=== PATIENT | male | born 1935 | race Caucasian/White ===

== ENCOUNTER 2017-01-10 11:00 | Outpatient (CLI) | payer MEDICARE ==
--- NOTE | 2017-01-10 12:29 | RAD ---
TWO VIEWS OF THE CHEST: HISTORY: Dyspnea. COMPARISON: 10/16/2007 FINDINGS: Single view of the chest show normal sized cardiomediastinal silhouette. There is no evidence of con solidation, mass, or pleural effusion. The bones are unremarkable. IMPRESSION: No evidence of acute cardiopulmonary disease. POS: [facility]
== END 2017-01-10 11:01 | disposition home or self-care (01) ==
LOC: RAD 11:00
PROVIDERS: ATTEND Internal Medicine
DX: R06.00 Dyspnea, unspecified (principal)
CPT/HCPCS: 71020

== ENCOUNTER 2018-09-12 12:18 | Outpatient (CLI) | payer MEDICARE ==
[2018-09-12 13:29] LABS: #Eosinphils 0.2 thou/uL (0.0-0.7); #Lymphocytes 0.9 thou/uL (1.20-3.40); #Monocytes 0.3 thou/uL (0.11-0.59); #Neutrophils 3.3 thou/uL (1.40-6.50); %Eosinophils 4.3 % (0.0-10.0); %Monocytes 6.9 % (0.0-10.0); %Neutrophils 70.7 % (42.0-75.0); Hemoglobin 13.8 g/dL (14.0-18.0); Mean Corpuscular HGB CONC 34.1 g/dL (32.0-36.0); Mean Platelet Volume 7.4 fL (7.4-10.4); Platelet Count 93 thou/uL (130-400); Red Blood Cell (RBC) Count 4.76 mill/uL (4.70-6.10); White Blood Cell (WBC) Count 4.7 thou/uL (4.8-10.8)
[2018-09-12 13:35] LABS: Prothrombin Time 13.6 SEC (12.0-14.7)
[2018-09-12 13:45] LABS: Bacteria/HPF None Seen HPF (None Seen); Hyaline Casts/LPF 0-3 HYALINE CAST LPF (0-3 Hyaline); RBC/HPF 0-3 HPF (0-3); Squamous Epithelial 0-3 HPF (0-3)
[2018-09-12 13:57] LABS: Anion Gap 14 mmol/L (10-20); BUN (Urea Nitrogen) 28 mg/dL (8.4-25.7); Calc. Creatinine Clearance 0 mL/min (70-130); Calcium 9.1 mg/dL (7.8-10.44); Carbon Dioxide 23 mmol/L (23-31); Chloride 107 mmol/L (98-107); Estimated GFR-MDRD 47; Glucose 102 mg/dL (83-110); Potassium 4.8 mmol/L (3.5-5.1); Sodium 139 mmol/L (136-145)
== END 2018-09-12 12:19 | disposition home or self-care (01) ==
LOC: LABBT 12:18
PROVIDERS: ATTEND Orthopaedic Surgery
DX: Z01.818 Encounter for other preprocedural examination (principal); M17.12 Unilateral primary osteoarthritis, left knee
CPT/HCPCS: 80048; 81015; 85025; 85610; 87081; 93005; 93010

== ENCOUNTER 2018-09-17 06:19 | Inpatient (IN) | payer MEDICARE ==
[2018-09-17] MEDS ORDERED: Bupivacaine PF 0.5% 30 ML VIAL ONE (06:33)
[2018-09-17] MEDS ORDERED: Tranexamic Acid 1,000 MG/10 ML VIAL ONE ×2 (07:37→12:17)
[2018-09-17] MEDS ORDERED: Sodium Chloride 0.9% 100 ML ONE (07:37)
[2018-09-17] MEDS ORDERED: Vancomycin HCl 1.5 GM in Sodium Chloride 0.9% 250 ML 300 ML IVPB SCH ×2 (07:45→10:30)
[2018-09-17] MEDS ORDERED: Midazolam HCl 2 mg/2 ml Vial ONE ×2 (08:17→13:08)
[2018-09-17] MEDS ORDERED: Fentanyl 100 MCG/2 ML VIAL ONE ×5 (08:17→13:05)
[2018-09-17] MEDS ORDERED: HYDROcodone/Acetaminophen 10/325 mg Tablet PO PRN (08:43)
[2018-09-17] MEDS ORDERED: Ondansetron PF 4 MG/2 ML Vial IVP PRN ×2 (08:43→10:21)
[2018-09-17] MEDS ORDERED: Promethazine HCl 25 MG/ML VIAL IM PRN ×3 (08:43→11:34)
[2018-09-17] MEDS ORDERED: traMADol HCl 50 MG TAB PO PRN ×2 (08:43)
[2018-09-17] MEDS ORDERED: Zolpidem Tartrate 5 MG TAB PO PRN ×2 (08:43→10:21)
[2018-09-17] MEDS ORDERED: diphenhydrAMINE 25 MG CAP PO PRN (10:21)
[2018-09-17] MEDS ORDERED: Acetaminophen 325 MG TAB PO PRN (10:21)
[2018-09-17] MEDS ORDERED: Tranexamic Acid 1,000 MG in Sodium Chloride 0.9% 100 ML IVPB SCH (10:30)
[2018-09-17] MEDS ORDERED: Promethazine HCl 25 MG/ML VIAL SLOW IVP PRN (11:34)
[2018-09-17] MEDS ORDERED: Ondansetron HCl/PF 4 MG/2 ML Vial IVP PRN (11:34)
[2018-09-17] MEDS ORDERED: Morphine 4 MG/ML VIAL ONE (13:08)
[2018-09-17] MEDS ORDERED: Morphine 4 MG/ML VIAL IV SCH (13:30)
[2018-09-17] MEDS ORDERED: Midazolam HCl 2 mg/2 ml Vial SLOW IVP SCH (13:30)
--- NOTE | 2018-09-17 13:36 | OP ---
DATE OF PROCEDURE: 09/17/2018 PREOPERATIVE DIAGNOSIS: Left knee arthritis. POSTOPERATIVE DIAGNOSIS: Left knee arthritis. PROCEDURE PERFORMED: Left total knee replacement using Corso pinless navigation. SATELLITE TV TECHNICIAN INSTALLER: Low Thibodeaux PA-C ESTIMATED BLOOD LOSS: Minimal. COMPLICATIONS: None. ANESTHESIA: The patient did have a general anesthetic as well as a preoperative block. IMPLANTS: To the left knee is a Molly Triathlon total knee system. We used a size 6 cruciate retaining femur. We used a size 6 primary tibial base plate. We used a 6 x 9 mm CS X3 tibial poly and an asymmetric 29 x 9 X3 patella. DISPOSITION: He did go to recovery room in stable condition. INDICATIONS: Mr. Finch is an 83-year-old male, who has tried various nonoperative treatments for his left knee arthritis, and at this time, that has failed and he wished to have his knee replaced. DESCRIPTION OF PROCEDURE: After all appropriate consent forms were explained and signed, the patient was taken back to the operating room and at this time was given general anesthetic. Once the level of anesthesia was appropriate, a well-padded tourniquet was placed on the left leg, and the leg was then prepped and draped in standard surgical fashion. The limb was exsanguinated and tourniquet taken up to 300 mmHg. Midline incision was made with a 10 blade down through the skin and subcutaneous tissue. Bovie electrocautery was used to coagulate any brisk venous bleeding. A new blade was used to make a medial parapatellar arthrotomy. Small subperiosteal release was performed medially and excess fat pad was removed. The knee was flexed up to gain access to the femur. The femur was navigated and distal femoral resection was made. Epicondylar access was used to align our sizing jig and this was pinned in place. We sized our femur to be a size 6. 4:1 cutting block was applied and pinned. Anterior and posterior chamfer cuts were then made. We navigated out our proximal tibia and made our proximal tibial resection. Spreaders were used to remove any posterior osteophytes off the back of the femur as well as remaining meniscal tissue. A long alignment zenobia was then used to achieve correct rotation of our tibial baseplate and a size 6 was chosen. This was pinned in place. We trialed the polyethylene and a 6 x 9 mm CS X3 tibial polyethylene gave us full extension and good stability throughout range of motion. Two towel clips and a saw were used to cut our patella. Three lug nuts were drilled and asymmetric 29 x 9 X3 patella was trialed which sat nicely in the trochlear groove. We then drilled our femur and punched our tibia. All components were removed. The knee was thoroughly irrigated and dried. Cement was mixed into the cement gun on the back table. Components were then placed. The knee was held out in full extension until the cement had dried. All excess bone cement was removed. Multiple #2 Vicryl stitches as well as a Quill were used to close our extensor mechanism. 0 Quill followed by a running Monoderm was then used to close the skin. Surgicel glue was then used on the skin. Once this had dried, soft tissue dressing was applied to the limb, tourniquet was let down, and the toes pinked up nicely. The patient was then awakened and taken to the recovery room in stable condition. All counts were correct at the end of the case. The patient did receive preoperative IV antibiotics. The patient was injected with Exparel for postoperative pain relief. Job ID: [id number]
[2018-09-17] MEDS ORDERED: Morphine 2 MG/ML SYRINGE ONE (13:56)
[2018-09-17] MEDS ORDERED: CEFAZOLIN 2 GM in Premix Bag 1 BAG IVPB SCH (14:00)
[2018-09-17] MEDS ORDERED: Morphine 2 MG/ML SYRINGE SLOW IVP SCH (15:00)
[2018-09-17] MEDS: Fentanyl 100 MCG/2 ML VIAL IV PRN (15:16)
[2018-09-17] MEDS ORDERED: Ropivacaine 0.5% HCl/PF (150 MG/30 ML VIAL) ONE (15:18)
[2018-09-17] MEDS ORDERED: Ropivacaine 0.2% HCl/PF (40 MG/20 ML VIAL) ONE (15:18)
[2018-09-17] MEDS: Sodium Chloride 0.9% 1,000 ML IV SCH ×3 (15:22→21:30)
[2018-09-17] MEDS ORDERED: Ondansetron PF 4 MG/2 ML Vial ONE (16:34)
[2018-09-17] MEDS ORDERED: Phenylephrine HCL 10 MG/ML VIAL ONE (16:34)
[2018-09-17] MEDS ORDERED: Lidocaine 1% PF 5 ML VIAL ONE (16:34)
[2018-09-17] MEDS ORDERED: Rocuronium Bromide 10 MG/ML (10ML VIAL) ONE (16:34)
[2018-09-17] MEDS ORDERED: PROPOFOL 200 MG/20 ML VIAL ONE (16:34)
[2018-09-17] MEDS ORDERED: Glycopyrrolate 0.2 MG/ML 5 ML SYRINGE ONE (16:34)
--- NOTE | 2018-09-17 17:36 | EKG ---
Test Reason : PREOP Blood Pressure : / mmHG Vent. Rate : 071 BPM Atrial Rate : 071 BPM P-R Int : 218 ms QRS Dur : 090 ms QT Int : 410 ms P-R-T Axes : 033 017 048 degrees QTc Int : 445 ms Sinus rhythm with 1st degree A-V block with frequent Premature ventricular complexes Otherwise normal ECG When compared with ECG of 12-SEP-2018 12:46, (Unconfirmed) Premature ventricular complexes are now Present Confirmed by ALEJANDRO FORRESTER, SOlinda ([id number]) on 09/17/2018 5:35:49 PM Referred By: IERO Confirmed By:DR. Drew ALLEN MD
[2018-09-17] MEDS: CEFAZOLIN 2 GM in Premix Bag 1 BAG IVPB SCH (18:59)
[2018-09-17] MEDS: Atorvastatin Calcium 10 MG TAB PO SCH (22:00)
[2018-09-17] MEDS: Senokot S 8.6-50 MG TAB PO SCH (22:00)
[2018-09-17] MEDS: Aspirin 81 mg Enteric Coated Tablet PO SCH (22:00)
[2018-09-17] MEDS: Ferrous Gluconate 324 MG TAB PO SCH (22:00)
[2018-09-17] MEDS: HYDROcodone/Acetaminophen 10/325 mg Tablet PO PRN (22:49)
[2018-09-18] MEDS: CEFAZOLIN 2 GM in Premix Bag 1 BAG IVPB SCH (01:30)
[2018-09-18 04:38] LABS: Hemoglobin 13.1 g/dL (14.0-18.0); Mean Corpuscular HGB CONC 34.7 g/dL (32.0-36.0); Mean Corpuscular Hemoglobin 29.6 pg (27.0-31.0); Mean Corpuscular Volume 85.5 fL (78.0-98.0); Mean Platelet Volume 7.8 fL (7.4-10.4); Platelet Count 81 thou/uL (130-400); RBC Distribution Width 13.9 % (11.5-14.5); Red Blood Cell (RBC) Count 4.43 mill/uL (4.70-6.10); White Blood Cell (WBC) Count 8.8 thou/uL (4.8-10.8)
[2018-09-18] MEDS: HYDROcodone/Acetaminophen 10/325 mg Tablet PO PRN ×3 (06:51→21:21)
[2018-09-18] MEDS: Sodium Chloride 0.9% 1,000 ML IV SCH ×2 (06:53→16:31)
--- NOTE | 2018-09-18 07:48 | PDOC.EVN ---
Event Note - Event Note Event Note: Dictated consultation note pending (09/17/18) Briefly, Mr. Finch is a very pleasant 83 yo M who is a patient of our clinic. He presented for L TKR by Dr. Hickman and we have been consulted for medical management of his comorbidities. He is feeling very well postoperatively and has no complaints at this time. VS reviewed - ALL wnl Exam unremarkable apart from LLE in large CRISTAL bandage and elevated ROS negative A/P: 83 yo M with PMHx HTN, HLD, OA and CKD3 here for L TKR 1. OA s/p TKR: Mgmt per primary team 2. HTN: Continue home coreg (consider BID dosing if BPs elevated) 3. HLD: Continue home atorvastatin 4. Urge incontinence: Continue home detrol DVT ppx: per ortho CODE: FULL This patient was discussed with Dr. Coelho.
[2018-09-18] MEDS ORDERED: Atorvastatin Calcium 20 MG TAB PO SCH (09:00)
[2018-09-18] MEDS ORDERED: Carvedilol 6.25 MG TAB PO SCH ×2 (09:00)
[2018-09-18] MEDS ORDERED: Aspirin Chewable 81 MG TAB PO SCH (09:00)
--- NOTE | 2018-09-18 09:09 | PDOC.FM ---
- Subjective Subjective: Vickey Finch seen at bedside this morning. He is POD 1 from L TKR. States he has been working on ROM in left LE in bed and his pain has been well controlled but is starting to worsen this morning. He denies any other complaints and there were no acute events overnight. He denies fever, chills, chest pain, dyspnea, n /v, abdominal pain. - Objective MAR Reviewed: Yes Vital Signs & Weight: Vital Signs (12 hours) Temp Pulse Resp BP Pulse Ox 09/18/18 08:42 99.0 F 86 16 158/82 H 93 L 09/18/18 07:37 95 09/18/18 04:00 98.7 F 89 16 139/78 93 L 09/18/18 00:00 98.5 F 85 16 152/75 H 95 Weight Weight 115.666 kg I&O: 09/17/18 09/18/18 09/19/18 06:59 06:59 06:59 Intake Total 2800 Balance 2800 Result Diagrams: 09/18/18 04:05 Phys Exam - Physical Examination Constitutional: NAD HEENT: moist MMs, sclera anicteric Neck: no JVD, supple, full ROM Respiratory: no wheezing, no rales, clear to auscultation bilateral Cardiovascular: RRR, no significant murmur Gastrointestinal: soft, non-tender, no distention Musculoskeletal: no edema, pulses present Neurological: non-focal, normal sensation, moves all 4 limbs Psychiatric: normal affect, A&O x 3 Skin: no rash, cap refill <2 seconds Dx/Plan (1) Osteoarthritis Code(s): M19.90 - UNSPECIFIED OSTEOARTHRITIS, UNSPECIFIED SITE Status: Chronic (2) Total knee replacement status Code(s): Z96.659 - PRESENCE OF UNSPECIFIED ARTIFICIAL KNEE JOINT Status: Acute Qualifiers: Laterality: left Qualified Code(s): Z96.652 - Presence of left artificial knee joint (3) Hypertension Code(s): I10 - ESSENTIAL (PRIMARY) HYPERTENSION Status: Chronic (4) Hyperlipemia Code(s): E78.5 - HYPERLIPIDEMIA, UNSPECIFIED Status: Chronic - Plan Plan: 1) OA s/p L TKA: POD1 - continue post op management per primary team - pain control per primary team 2) HTN: - Continue home coreg (consider BID dosing if BPs elevated) 3) HLD: - Continue home atorvastatin 4) Urge incontinence: - Continue home detrol Addendum - Attending - Attending Attestation Date/Time: 09/18/18 [id number] I personally evaluated the patient and discussed the management with Dr. Kraft I agree with the History, Examination, Assessment and Plan documented above with any addition or exceptions noted below. POD #1 encourage improved ROM and incentive spirometry continue monitor BP and adjust medication accordingly.
[2018-09-18] MEDS: Aspirin 81 mg Enteric Coated Tablet PO SCH ×2 (09:17→21:22)
[2018-09-18] MEDS: Senokot S 8.6-50 MG TAB PO SCH ×2 (09:18→21:22)
[2018-09-18] MEDS: Multivitamin W/ Minerals 1 TAB PO SCH (09:18)
[2018-09-18] MEDS: Ferrous Gluconate 324 MG TAB PO SCH ×2 (09:18→21:22)
--- NOTE | 2018-09-18 10:29 | PRG ---
DATE OF SERVICE: 09/18/2018 SUBJECTIVE: The patient admitted with little bit of shortness of breath, also some discomfort from surgery. He has refused therapy, evaluated yesterday evening and he is refusing to participate much. Of that, he has no real complaints. OBJECTIVE: VITAL SIGNS: Temperature 99, pulse 86, blood pressure 158/82, respiratory rate 16, and O2 saturation 100% on room air. GENERAL: He is alert and oriented to person, place, time, and situation, grossly nonfocal. Appropriate examiner. Converses easily. His incision is clean and closed without erythema. There is no strike through noted. He is neurovascularly intact in both lower extremities. LABORATORY DATA: Hemoglobin 13.1 and hematocrit 37.9. IMPRESSION: 1. An 83-year-old male, postop day #1, left total knee arthroplasty. 2. Hypertension. 3. Hyperlipidemia. 4. Urge incontinence. PLAN: Continue current care. I will encourage him to participate with therapy in [facility]. Probable discharge home either tomorrow or the next day. Job ID: [id number]
[2018-09-18] MEDS: Trospium 20 MG TAB PO SCH ×2 (10:59→21:22)
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
[2018-09-18] MEDS: Ropivacaine HCl/PF 250 ML in Premix Bag 1 BAG NERVE BLCK SCH (13:47)
[2018-09-18] MEDS: Fentanyl 100 MCG/2 ML VIAL IV PRN ×2 (16:11→23:43)
[2018-09-18] MEDS: Atorvastatin Calcium 10 MG TAB PO SCH (21:22)
[2018-09-19] MEDS: Sodium Chloride 0.9% 1,000 ML IV SCH ×3 (02:55→20:04)
[2018-09-19] MEDS: HYDROcodone/Acetaminophen 10/325 mg Tablet PO PRN ×2 (04:28→18:53)
[2018-09-19] MEDS ORDERED: Labetalol HCl 100 MG/20 ML VIAL SLOW IVP PRN (06:22)
--- NOTE | 2018-09-19 06:25 | PDOC.FM ---
- Subjective Subjective: Vickey Finch seen at bedside this morning. He is doing well, there were no acute events overnight. He has no complaints this morning. He states that his pain is well controlled. His BPs have been elevated occasionally in the 170s systolic over the last 24 hours. He denies any headaches, vision changes, chest pain, dyspnea, n/v, abdominal pain. - Objective MAR Reviewed: Yes Vital Signs & Weight: Vital Signs (12 hours) Temp Pulse Resp BP Pulse Ox 09/19/18 05:00 99.7 F H 91 14 147/73 H 94 L 09/19/18 01:08 86 164/85 H 09/19/18 00:23 86 170/85 H 09/19/18 00:18 99.6 F 86 14 175/84 H 95 09/18/18 20:33 98.7 F 80 14 165/79 H 96 09/18/18 20:25 96 Weight Admit Weight 113.398 kg Weight 113.398 kg I&O: 09/17/18 09/18/18 09/19/18 06:59 06:59 06:59 Intake Total 2800 1270 Balance 2800 1270 Result Diagrams: 09/19/18 05:06 09/19/18 07:18 Phys Exam - Physical Examination Constitutional: NAD HEENT: moist MMs, sclera anicteric Neck: supple, full ROM Respiratory: no wheezing, no rales, no rhonchi, clear to auscultation bilateral Cardiovascular: RRR, no significant murmur Gastrointestinal: soft, non-tender, no distention Musculoskeletal: no edema, pulses present Neurological: non-focal, normal sensation, moves all 4 limbs Psychiatric: normal affect, A&O x 3 Dx/Plan (1) Osteoarthritis Code(s): M19.90 - UNSPECIFIED OSTEOARTHRITIS, UNSPECIFIED SITE Status: Chronic (2) Total knee replacement status Code(s): Z96.659 - PRESENCE OF UNSPECIFIED ARTIFICIAL KNEE JOINT Status: Acute Qualifiers: Laterality: left Qualified Code(s): Z96.652 - Presence of left artificial knee joint (3) Hypertension Code(s): I10 - ESSENTIAL (PRIMARY) HYPERTENSION Status: Chronic (4) Hyperlipemia Code(s): E78.5 - HYPERLIPIDEMIA, UNSPECIFIED Status: Chronic - Plan Plan: 1) OA s/p L TKA: POD1 - continue post op management per primary team - pain control per primary team 2) HTN: - Continue home coreg - BPs elevated overnight in the 170s systolic - increasing coreg to BID 3) HLD: - Continue home atorvastatin 4) Urge incontinence: - Continue home detrol Addendum - Attending - Attending Attestation Date/Time: 09/19/18 9712 I personally evaluated the patient and discussed the management with Dr. Kraft I agree with the History, Examination, Assessment and Plan documented above with any addition or exceptions noted below.
[2018-09-19 06:44] LABS: Hemoglobin 12.7 g/dL (14.0-18.0); Mean Corpuscular HGB CONC 34.2 g/dL (32.0-36.0); Mean Platelet Volume 7.4 fL (7.4-10.4); Platelet Count 90 thou/uL (130-400); RBC Distribution Width 13.9 % (11.5-14.5); Red Blood Cell (RBC) Count 4.38 mill/uL (4.70-6.10); White Blood Cell (WBC) Count 8.4 thou/uL (4.8-10.8)
[2018-09-19 08:07] LABS: Anion Gap 13 mmol/L (10-20); BUN (Urea Nitrogen) 16 mg/dL (8.4-25.7); Calc. Creatinine Clearance 73 mL/min (70-130); Carbon Dioxide 23 mmol/L (23-31); Chloride 104 mmol/L (98-107); Estimated GFR-MDRD 56; Glucose 128 mg/dL (83-110); Potassium 4.5 mmol/L (3.5-5.1); Sodium 135 mmol/L (136-145)
[2018-09-19] MEDS: Aspirin 81 mg Enteric Coated Tablet PO SCH ×2 (08:39→19:56)
[2018-09-19] MEDS: Trospium 20 MG TAB PO SCH ×2 (08:39→19:57)
[2018-09-19] MEDS: Multivitamin W/ Minerals 1 TAB PO SCH (08:40)
[2018-09-19] MEDS: Carvedilol 6.25 MG TAB PO SCH ×2 (08:40→16:41)
[2018-09-19] MEDS: Ferrous Gluconate 324 MG TAB PO SCH ×2 (08:40→19:56)
[2018-09-19] MEDS: Senokot S 8.6-50 MG TAB PO SCH ×2 (08:40→19:56)
[2018-09-19] MEDS ORDERED: Chlorthalidone 25 MG TAB PO SCH (09:00)
[2018-09-19] MEDS: Ropivacaine HCl/PF 250 ML in Premix Bag 1 BAG NERVE BLCK SCH (12:10)
[2018-09-19] MEDS: Atorvastatin Calcium 10 MG TAB PO SCH (19:56)
[2018-09-20] MEDS: HYDROcodone/Acetaminophen 10/325 mg Tablet PO PRN ×5 (04:15→23:44)
[2018-09-20 05:29] LABS: Mean Corpuscular HGB CONC 34.3 g/dL (32.0-36.0); Mean Corpuscular Hemoglobin 29.3 pg (27.0-31.0); Mean Corpuscular Volume 85.5 fL (78.0-98.0); Mean Platelet Volume 7.9 fL (7.4-10.4); Platelet Count 94 thou/uL (130-400); RBC Distribution Width 13.7 % (11.5-14.5); Red Blood Cell (RBC) Count 3.77 mill/uL (4.70-6.10); White Blood Cell (WBC) Count 7.4 thou/uL (4.8-10.8)
--- NOTE | 2018-09-20 06:04 | PDOC.FM ---
- Subjective Subjective: Vickey Finch seen at bedside this morning. He complains of occasional headaches this morning, especially when he is doing physical therapy. SEYMOUR relieved with rest. He denies any other new complaints, there were no acute events overnight. BPs have become more controlled since increasing Coreg to BID dosing. He denies any fever, chills, chest pain, dyspnea, n/v, abdominal pain. - Objective MAR Reviewed: Yes Vital Signs & Weight: Vital Signs (12 hours) Temp Pulse Resp BP Pulse Ox 09/20/18 05:02 99.4 F 93 20 132/68 94 L 09/20/18 00:39 98.7 F 97 20 129/75 95 09/19/18 20:41 99.3 F 100 20 156/84 H 95 09/19/18 19:35 95 Weight Admit Weight 113.398 kg Weight 113.398 kg I&O: 09/18/18 09/19/18 09/20/18 06:59 06:59 06:59 Intake Total 2800 1270 1400 Balance 2800 1270 1400 Result Diagrams: 09/20/18 04:48 09/19/18 07:18 Phys Exam - Physical Examination Constitutional: NAD HEENT: moist MMs, sclera anicteric Neck: supple, full ROM Respiratory: no wheezing, no rales, no rhonchi, clear to auscultation bilateral Cardiovascular: RRR, no significant murmur Gastrointestinal: soft, non-tender, positive bowel sounds Musculoskeletal: no edema, pulses present Neurological: non-focal, normal sensation, moves all 4 limbs Psychiatric: normal affect, A&O x 3 Skin: no rash Dx/Plan (1) Osteoarthritis Code(s): M19.90 - UNSPECIFIED OSTEOARTHRITIS, UNSPECIFIED SITE Status: Chronic (2) Total knee replacement status Code(s): Z96.659 - PRESENCE OF UNSPECIFIED ARTIFICIAL KNEE JOINT Status: Acute Qualifiers: Laterality: left Qualified Code(s): Z96.652 - Presence of left artificial knee joint (3) Hypertension Code(s): I10 - ESSENTIAL (PRIMARY) HYPERTENSION Status: Chronic (4) Hyperlipemia Code(s): E78.5 - HYPERLIPIDEMIA, UNSPECIFIED Status: Chronic - Plan Plan: 1) OA s/p L TKA: POD3 - continue post op management per primary team - pain control per primary team 2) HTN: - Continue home coreg - BPs elevated overnight in the 170s systolic - increased coreg to BID - BPs have been more controlled 3) HLD: - Continue home atorvastatin 4) Urge incontinence: - Continue home detrol Addendum - Attending - Attending Attestation Date/Time: 09/20/181953 I personally evaluated the patient and discussed the management with I agree with the History, Examination, Assessment and Plan documented above with any addition or exceptions noted below.
[2018-09-20] MEDS: Multivitamin W/ Minerals 1 TAB PO SCH (08:07)
[2018-09-20] MEDS: Trospium 20 MG TAB PO SCH ×2 (08:08→20:01)
[2018-09-20] MEDS: Aspirin 81 mg Enteric Coated Tablet PO SCH ×2 (08:08→20:01)
[2018-09-20] MEDS: Senokot S 8.6-50 MG TAB PO SCH ×2 (08:08→20:01)
[2018-09-20] MEDS: Carvedilol 6.25 MG TAB PO SCH ×2 (08:08→17:32)
[2018-09-20] MEDS: Sodium Chloride 0.9% 1,000 ML IV SCH ×2 (08:09→17:08)
[2018-09-20] MEDS: Ferrous Gluconate 324 MG TAB PO SCH ×2 (08:09→20:01)
[2018-09-20] MEDS: Atorvastatin Calcium 10 MG TAB PO SCH (20:01)
[2018-09-21] MEDS: Sodium Chloride 0.9% 1,000 ML IV SCH (01:10)
[2018-09-21] MEDS: HYDROcodone/Acetaminophen 10/325 mg Tablet PO PRN ×2 (06:26→10:45)
[2018-09-21 06:48] LABS: Hemoglobin 10.4 g/dL (14.0-18.0); Mean Corpuscular HGB CONC 33.1 g/dL (32.0-36.0); Mean Corpuscular Hemoglobin 28.5 pg (27.0-31.0); Mean Corpuscular Volume 86.3 fL (78.0-98.0); Mean Platelet Volume 6.8 fL (7.4-10.4); Platelet Count 106 thou/uL (130-400); RBC Distribution Width 13.6 % (11.5-14.5); Red Blood Cell (RBC) Count 3.65 mill/uL (4.70-6.10); White Blood Cell (WBC) Count 5.9 thou/uL (4.8-10.8)
[2018-09-21] MEDS ORDERED: Enoxaparin Sodium 40 MG/0.4 ML SYRINGE SC SCH (09:00)
[2018-09-21] MEDS: Carvedilol 6.25 MG TAB PO SCH (09:24)
[2018-09-21] MEDS: Multivitamin W/ Minerals 1 TAB PO SCH (09:25)
[2018-09-21] MEDS: Ferrous Gluconate 324 MG TAB PO SCH (09:26)
[2018-09-21] MEDS: Senokot S 8.6-50 MG TAB PO SCH (09:26)
[2018-09-21] MEDS: Aspirin 81 mg Enteric Coated Tablet PO SCH (09:26)
[2018-09-21] MEDS: Trospium 20 MG TAB PO SCH (09:27)
[2018-09-21 12:34] VITALS: BP 113/65; TEMP 98.3
[2018-09-21 14:43] VITALS: BMI 42.5
== END 2018-09-21 13:59 | disposition home or self-care (01) | DRG 470 ==
LOC: SDC 06:19 → SJJU 10:21
PROVIDERS: ADMIT Orthopaedic Surgery; ATTEND Orthopaedic Surgery
PROC: 0SRD0J9 Replacement of Left Knee Joint with Synthetic Substitute, Cemented, Open Approach (ICD-10-PCS; principal; 2018-09-17)
DX: M17.12 Unilateral primary osteoarthritis, left knee (principal); I10 Essential (primary) hypertension; E78.00 Pure hypercholesterolemia, unspecified; N39.41 Urge incontinence; Z79.899 Other long term (current) drug therapy
CPT/HCPCS: 36415; 80048; 85027; 86850; 86900; 86901; 93005; 93010; C1713; C1776; J0690; J1650; J2001; J2250; J2270; J2370; J2405; J2704; J2795; J3010; J3370; J3490; J7050; S0020

== ENCOUNTER 2019-12-06 07:48 | Outpatient (CLI) | payer MEDICARE, OTHER ==
[2019-12-06 12:30] LABS: #Eosinphils 0.2 thou/uL (0.0-0.7); #Lymphocytes 0.8 thou/uL (1.20-3.40); #Monocytes 0.3 thou/uL (0.11-0.59); #Neutrophils 3.7 thou/uL (1.40-6.50); %Basophils 0.3 % (0.0-1.0); %Eosinophils 3.3 % (0.0-10.0); %Lymphocytes 16.2 % (21.0-51.0); %Monocytes 5.4 % (0.0-10.0); %Neutrophils 74.9 % (42.0-75.0); Hemoglobin 15.2 g/dL (14.0-18.0); Mean Corpuscular HGB CONC 33.5 g/dL (32.0-36.0); Mean Corpuscular Hemoglobin 28.4 pg (27.0-31.0); Mean Corpuscular Volume 84.6 fL (78.0-98.0); Mean Platelet Volume 9.4 fL (7.4-10.4); Platelet Count 43 thou/uL (130-400); Platelet Morphology Comment Appears Decreased; RBC Distribution Width 14.4 % (11.5-14.5); RBC Morphology Normal; Red Blood Cell (RBC) Count 5.37 mill/uL (4.70-6.10); White Blood Cell (WBC) Count 4.9 thou/uL (4.8-10.8)
[2019-12-06 13:06] LABS: ALT (SGPT) 20 U/L (8-55); AST (SGOT) 21 U/L (5-34); Albumin 4.3 g/dL (3.4-4.8); Alkaline Phosphatase 98 U/L (40-110); Anion Gap 16 mmol/L (10-20); BUN (Urea Nitrogen) 24 mg/dL (8.4-25.7); Bilirubin, Total 0.4 mg/dL (0.2-1.2); Calc. Creatinine Clearance 0 mL/min (70-130); Calcium 8.9 mg/dL (7.8-10.44); Carbon Dioxide 23 mmol/L (23-31); Chloride 106 mmol/L (98-107); Estimated GFR-MDRD 40; Globulin 3.2 g/dL (2.4-3.5); Glucose 151 mg/dL (83-110); Potassium 4.4 mmol/L (3.5-5.1); Protein, Total 7.5 g/dL (5.8-8.1); Sodium 141 mmol/L (136-145)
[2019-12-06 17:03] LABS: SARS-CoV-2 MS2 Positive; SARS-CoV-2 N Gene Negative; SARS-CoV-2 S Gene Negative; SARS-CoV-2 by NAA Not Detected (NotDetected); SARS-CoV-2 orf1ab Negative
== END 2019-12-06 07:49 | disposition home or self-care (01) ==
LOC: LABBT 07:48
PROVIDERS: ATTEND Internal Medicine Cardiovascular Disease
DX: Z01.812 Encounter for preprocedural laboratory examination (principal); Z20.828 Contact with and (suspected) exposure to other viral communicable diseases
CPT/HCPCS: 80053; 85025; U0003; 87635

== ENCOUNTER 2019-12-11 05:30 | Inpatient (IN) | payer MEDICARE ==
[2019-12-11] MEDS ORDERED: Iopamidol 370 76% 100 ML VIAL ONE (09:07)
[2019-12-11] MEDS ORDERED: Nitroglycerin 100MG/250ML BOT 250 ML ONE (12:12)
[2019-12-11] MEDS ORDERED: Verapamil 5 MG/2 ML VIAL ONE (12:13)
[2019-12-11] MEDS ORDERED: Heparin 10,000 UNITS/ 10 ML VIAL ONE (12:13)
[2019-12-11] MEDS ORDERED: Fentanyl 100 MCG/2 ML VIAL ONE (12:24)
[2019-12-11] MEDS ORDERED: Midazolam HCl 2 mg/2 ml Vial ONE (12:24)
[2019-12-11] MEDS ORDERED: Communication Order-Pharmacy FS ONE (18:46)
--- NOTE | 2019-12-11 18:58 | CON ---
DATE OF CONSULTATION: 12/11/2019 CHIEF COMPLAINT: Shortness of breath. HISTORY OF PRESENT ILLNESS: Mr. Finch is a very pleasant 84-year-old gentleman, whom I have seen and evaluated in the past. The patient has been seen intermittently in the office in 2013 and in 2018. He then returned to the office for shortness of breath. His shortness of breath was felt to be noted with mild exertion, relieved with rest. He underwent a noninvasive stress study, where he was found to have ischemia noted along the inferior wall. LVEF was markedly diminished and likely related to PVCs. His most recent echo in the office did suggest LVEF of 50% to 55% with moderate aortic stenosis. Mean and peak gradient were 38 and 18 with a calculated aortic valve area of 1.13. PAST MEDICAL HISTORY: 1. Hyperlipidemia. 2. Moderate aortic stenosis. 3. PVCs. 4. Chronic kidney disease. 5. Colonoscopy. 6. Orchiectomy. 7. Left knee surgery. HOME MEDICATIONS: Include: 1. B12. 2. Coreg. 3. Tramadol. 4. Atorvastatin. 5. Aspirin. 6. Vitamin D. SOCIAL HISTORY: No current tobacco or alcohol use. ALLERGIES: PREDNISONE. REVIEW OF SYSTEMS: Ten-point review of systems is reviewed as above and otherwise negative. PHYSICAL EXAMINATION: GENERAL: Patient is a pleasant gentleman who is in no acute distress. The patient appears their stated age. VITAL SIGNS: Blood pressure 118/70, pulse 80, and respirations 20. NEUROLOGIC: The patient is alert and oriented x3 with no focal neurologic deficits. HEENT: Sclerae without icterus. Mouth has moist mucous membranes with normal pallor. NECK: No JVD. Carotid upstroke brisk. No bruits bilaterally. LUNGS: Rhonchi noted bilaterally. BACK: No scoliosis or kyphosis. CARDIAC: Regular rate and rhythm with normal S1 and S2. No S3 or S4 noted. No significant rubs, murmurs, thrills, or gallops noted throughout the precordium. PMI is not displaced. There is no parasternal heave. ABDOMEN: Soft, nontender, nondistended. No peritoneal signs present. No hepatosplenomegaly. No abnormal striae. EXTREMITIES: 2+ femoral and 2+ dorsalis pedis pulses. No cyanosis, clubbing, or edema. SKIN: No gross abnormalities. PERTINENT LABORATORY DATA: Creatinine 1.5. Coronary angiography: Severe multivessel disease. IMPRESSION: 1. Severe multivessel disease. 2. Moderate aortic stenosis. 3. Lung disease. RECOMMENDATIONS: Mr. Finch will be admitted overnight for hydration. We would like to reassess his aortic valve. We will proceed with NETO in a.m. I discussed the procedure in full detail with Mr. Finch. Risks include, but not limited to the following: Damage to teeth, mouth, back of throat; damage to esophagus, as well as requiring emergency surgery. All questions answered. Given the above, the patient agreed to proceed with above procedure. We will also consult Pulmonary. The patient has significant rhonchi noted bilaterally. He has seen Dr. Bauer in the past. I have also consulted Dr. Heriberto Sheppard. Job ID: [id number]
--- NOTE | 2019-12-11 19:03 | RAD ---
EXAM: Single view of the chest HISTORY: Preoperative radiograph prior to CABG COMPARISON: 01/10/2017 FINDINGS: Single view of the chest shows a normal sized cardiomediastinal silhouette. There is no mandie dence of consolidation, mass, or pleural effusion. Degenerative changes are seen in the spine. IMPRESSION: No evidence of acute cardiopulmonary disease
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
[2019-12-11] MEDS ORDERED: Atorvastatin Calcium 20 MG TAB PO SCH (21:00)
[2019-12-11] MEDS: Carvedilol 25 MG TAB PO SCH (22:30)
[2019-12-12] MEDS ORDERED: traMADol HCl 50 MG TAB PO SCH (09:00)
[2019-12-12] MEDS ORDERED: Cholecalciferol 1,000 UNITS (25 MCG) TAB PO SCH (09:00)
[2019-12-12] MEDS ORDERED: Multivit, Therapeutic 1 TAB PO SCH (09:00)
[2019-12-12] MEDS ORDERED: Aspirin 81 mg Enteric Coated Tablet PO SCH (09:00)
[2019-12-12] MEDS: Sodium Chloride 0.9% 1,000 ML IV SCH ×2 (09:44→17:57)
--- NOTE | 2019-12-12 10:24 | CON ---
DATE OF CONSULTATION: 12/12/2019 50 minutes time, of that time greater than 50% was spent with the patient, 50% spent on the hospital armenta and trying to retrieve information from previous visits. HISTORY OF PRESENT ILLNESS: This is an 84-year-old male, who is being considered for coronary artery bypass grafting surgery for coronary artery disease. He was noted to have severe rhonchi on exam yesterday and I have been asked to see him to make sure his lungs are in good enough shape to tolerate surgery. He has seen my partner, Dr. Bauer, in the office before back in 2017 for suspected COPD. The patient did not follow through with any further testing and never came back after that initial visit. The patient denies any previous history of asthma or COPD and he is currently not using any inhalers at home. He smoked about a pack a day until 14 years ago when he quit. PAST MEDICAL HISTORY: 1. Moderate aortic stenosis. 2. Chronic kidney disease. 3. Hyperlipidemia. 4. Osteoarthritis. PAST SURGICAL HISTORY: 1. Colonoscopy. 2. Orchiectomy. 3. Left knee surgery. MEDICATIONS: Prior to admission; 1. B12. 2. Coreg. 3. Tramadol. 4. Atorvastatin. 5. Aspirin. 6. Vitamin D. SOCIAL HISTORY: Smoking history as outlined above. Does not consume alcohol. ALLERGIES: PREDNISONE. REVIEW OF SYSTEMS: Twelve-point review of systems is otherwise negative. PHYSICAL EXAMINATION: VITAL SIGNS: Temperature 98.2, pulse 68, respirations 14, O2 saturation 96% on room air, and blood pressure 132/77. He is 5 feet 7 inches, weight is 267 pounds, and his body mass index is 42. HEENT: Remarkable for class III Mallampati airway. NECK: No adenopathy or JVD. LUNGS: Fairly clear except for some upper airway rhonchi towards the trachea. CARDIAC: S1 and S2, regular with 2/6 systolic murmur. ABDOMEN: Soft, obese, nontender, and nondistended. EXTREMITIES: No clubbing, cyanosis, or edema. LABORATORY DATA: White blood cell count 4.9, hematocrit 45, and platelet count 43. Sodium 141, potassium 4.1, BUN 59, creatinine 1.5, and glucose 151. IMAGING DATA: His chest x-ray shows no mass, effusion, or infiltrate. ASSESSMENT: 1. Possible chronic obstructive pulmonary disease. 2. Morbid obesity. 3. Coronary artery disease. 4. Aortic stenosis. 5. Chronic kidney disease. 6. Thrombocytopenia. PLAN: The patient needs PFTs to further assess his pulmonary risk for surgery. I am not sure whether or not those could be performed in the hospital because the machine may not be working. In that case, he would either have to be set up as an outpatient or he would need to be transported by ambulance over to [place] and have the procedure done and then transported back. In any event, if surgery is not pressing, then I would wait for the results of the pulmonary function testing before proceeding. Job ID: [id number]
[2019-12-12] MEDS: Carvedilol 25 MG TAB PO SCH (10:52)
[2019-12-12] MEDS ORDERED: PROPOFOL 200 MG/20 ML VIAL ONE (12:21)
[2019-12-12 13:08] VITALS: BMI 43.5
[2019-12-12 15:45] VITALS: BP 138/71; TEMP 98.2
[2019-12-12 16:04] LABS: #Eosinphils 0.2 thou/uL (0.0-0.7); #Lymphocytes 0.8 thou/uL (1.20-3.40); #Monocytes 0.4 thou/uL (0.11-0.59); #Neutrophils 4.5 thou/uL (1.40-6.50); %Basophils 0.2 % (0.0-1.0); %Eosinophils 2.7 % (0.0-10.0); %Lymphocytes 13.7 % (21.0-51.0); %Monocytes 6.5 % (0.0-10.0); Hemoglobin 13.5 g/dL (14.0-18.0); Mean Corpuscular HGB CONC 33.7 g/dL (32.0-36.0); Mean Corpuscular Hemoglobin 28.5 pg (27.0-31.0); Mean Corpuscular Volume 84.5 fL (78.0-98.0); Mean Platelet Volume 7.9 fL (7.4-10.4); Platelet Count 105 thou/uL (130-400); Red Blood Cell (RBC) Count 4.74 mill/uL (4.70-6.10); White Blood Cell (WBC) Count 5.9 thou/uL (4.8-10.8)
[2019-12-12 16:24] LABS: Anion Gap 13 mmol/L (10-20); BUN (Urea Nitrogen) 21 mg/dL (8.4-25.7); Calc. Creatinine Clearance 68 mL/min (70-130); Calcium 8.4 mg/dL (7.8-10.44); Carbon Dioxide 24 mmol/L (23-31); Chloride 108 mmol/L (98-107); Estimated GFR-MDRD 46; Glucose 117 mg/dL (83-110); Potassium 4.7 mmol/L (3.5-5.1); Sodium 140 mmol/L (136-145)
[2019-12-12] MEDS ORDERED: Nitroglycerin 0.4 MG TAB 1 EACH PO PRN (17:20)
--- NOTE | 2019-12-12 18:10 | DIS ---
DATE OF ADMISSION: 12/11/2019 DATE OF DISCHARGE: 12/12/2019 DISCHARGE DIAGNOSES: Severe CAD and moderate to severe aortic stenosis. PROCEDURES: 1. Coronary angiography. 2. NETO. CONSULTATIONS: Dr. Heriberto Sheppard and Dr. Live Franklin. HOSPITAL COURSE: Mr. Finch is a very pleasant 84-year-old gentleman, who recently was seen and evaluated for shortness of breath. He underwent coronary angiography on 12/11/2019. He was admitted early for hydration. His creatinine did improve from 1.6 to 1.5. He underwent coronary angiography without complication. Radial approach was noted. He did have moderate to severe multivessel disease. Mr. Finch also appeared to have a moderate to severe aortic stenosis. He underwent NETO on 12/12/2019 and had a calculated valve area of 1.1. He also had significant issues from a lung standpoint. Pulmonary was consulted. They felt PFTs were appropriately and can be done as an outpatient. Dr. Heriberto Sheppard did feel he was an appropriate candidate for bypass surgery and valve replacement, but with risk. Mr. Finch also had low platelet count at 43,000. It was repeated, it was 105,000. This was more consistent with a moderate thrombocytopenia. I discussed options with Mr. Finch including bypass plus valve versus incomplete revascularization with stent to the right coronary artery and ? Circumflex artery but cannot revascularize the diagonal. He could also undergo TAVR. He would like to think about his options. In the meantime, would like to have him schedule a followup with Dr. Cristobal Bauer for lung assessment and follow up with me in 1 to 2 weeks. DISCHARGE MEDICATIONS: 1. Vitamin D3. 2. Tramadol as prescribed. 3. Carvedilol 6.25 mg one p.o. b.i.d. 4. Atorvastatin one q.a.m. 5. Multivitamin. 6. Aspirin 81 daily. 7. Isosorbide 30 daily. CONDITION ON DISCHARGE: Stable. Job ID: [id number]
== END 2019-12-12 17:39 | disposition home or self-care (01) | DRG 287 ==
LOC: SDC 05:30 → ERHOLD 14:40 → 2SE 18:32
PROVIDERS: ADMIT Internal Medicine Cardiovascular Disease; ATTEND Internal Medicine Cardiovascular Disease
PROC: 4A023N7 Measurement of Cardiac Sampling and Pressure, Left Heart, Percutaneous Approach (ICD-10-PCS; principal; 2019-12-11)
PROC: B2111ZZ Fluoroscopy of Multiple Coronary Arteries using Low Osmolar Contrast (ICD-10-PCS; 2019-12-11)
PROC: B24BZZ4 Ultrasonography of Heart with Aorta, Transesophageal (ICD-10-PCS; 2019-12-11)
DX: I25.10 Atherosclerotic heart disease of native coronary artery without angina pectoris (principal); Z68.41 Body mass index [BMI] 40.0-44.9, adult; I35.0 Nonrheumatic aortic (valve) stenosis; E78.5 Hyperlipidemia, unspecified; N18.9 Chronic kidney disease, unspecified; E66.01 Morbid (severe) obesity due to excess calories; I12.9 Hypertensive chronic kidney disease with stage 1 through stage 4 chronic kidney disease, or unspecified chronic kidney disease; I49.3 Ventricular premature depolarization; M19.90 Unspecified osteoarthritis, unspecified site; N35.919 Unspecified urethral stricture, male, unspecified site; D69.6 Thrombocytopenia, unspecified; Z79.82 Long term (current) use of aspirin; Z98.890 Other specified postprocedural states
CPT/HCPCS: 71045; 80048; 82565; 85025; 93312; 93458; 94640; 99152; J1644; J2250; J2704; J3010; J7620; Q9967

== ENCOUNTER 2020-02-17 06:42 | Outpatient (CLI) | payer MEDICARE, OTHER ==
[2020-02-17 09:56] LABS: #Eosinphils 0.2 10x3/uL (0.0-0.5); #Monocytes 0.4 10x3/uL (0.0-1.1); #Neutrophils 3.8 10x3/uL (1.5-8.4); %Basophils 0.6 % (0.0-2.0); %Lymphocytes 16.2 % (18.0-47.0); %Monocytes 6.8 % (0.0-10.0); %Neutrophils 72.2 % (40.0-75.0); Hemoglobin 13.2 g/dL (14.0-18.0); Mean Corpuscular HGB CONC 32.5 G/DL (32.0-36.0); Mean Corpuscular Hemoglobin 27.1 PG (27.0-33.0); Mean Corpuscular Volume 83.4 fl (80.0-100.0); Mean Platelet Volume 9.4 fl (7.4-10.4); Platelet Count 95 10x3/uL (130-400); RBC Distribution Width 14.5 % (11.5-14.5); Red Blood Cell (RBC) Count 4.87 10x6/uL (4.40-5.80); White Blood Cell (WBC) Count 5.3 10x3/uL (4.5-11.0)
[2020-02-17 10:15] LABS: ALT (SGPT) 20 U/L (8-55); AST (SGOT) 21 U/L (5-34); Alkaline Phosphatase 86 U/L (40-110); Anion Gap 15 mmol/L (10-20); BUN (Urea Nitrogen) 26 mg/dL (8.4-25.7); Bilirubin, Total 0.4 mg/dL (0.2-1.2); Calc. Creatinine Clearance 0 mL/min (70-130); Calcium 8.6 mg/dL (7.8-10.44); Carbon Dioxide 23 mmol/L (23-31); Chloride 106 mmol/L (98-107); Estimated GFR-MDRD 43; Globulin 2.9 g/dL (2.4-3.5); Glucose 139 mg/dL (83-110); Potassium 4.7 mmol/L (3.5-5.1); Protein, Total 6.9 g/dL (5.8-8.1); Sodium 139 mmol/L (136-145)
[2020-02-17 10:36] LABS: Platelet Morphology Comment Appears Decreased
[2020-02-17 10:37] LABS: RBC Morphology Normal
[2020-02-18 12:10] LABS: SARS-CoV-2 MS2 Positive; SARS-CoV-2 N Gene Negative; SARS-CoV-2 S Gene Negative; SARS-CoV-2 by NAA Not Detected (NotDetected); SARS-CoV-2 orf1ab Negative
== END 2020-02-17 06:43 | disposition home or self-care (01) ==
LOC: LABBT 06:42
PROVIDERS: ATTEND Internal Medicine Cardiovascular Disease
DX: Z01.812 Encounter for preprocedural laboratory examination (principal); Z20.828 Contact with and (suspected) exposure to other viral communicable diseases
CPT/HCPCS: 80053; 85025; U0003; 87635

== ENCOUNTER 2020-02-17 09:15 | Observation (INO) | payer MEDICARE ==
[2020-03-05 14:59] VITALS: BMI 41.3
[2020-03-05] MEDS ORDERED: Loperamide HCl 2 MG CAP PO PRN ×2 (16:30)
[2020-03-05] MEDS ORDERED: Sodium Chloride 0.9% 1,000 ML IV SCH (16:30)
[2020-03-05] MEDS ORDERED: Pepto Bismol Chew TAB PO PRN (16:30)
[2020-03-05] MEDS ORDERED: Clopidogrel Bisulfate 300 MG TAB PO SCH (17:30)
[2020-03-05] MEDS ORDERED: Communication Order-Pharmacy FS SCH (17:30)
[2020-03-05 18:48] LABS: #Eosinphils 0.3 thou/uL (0.0-0.7); #Lymphocytes 0.9 thou/uL (1.20-3.40); #Monocytes 0.3 thou/uL (0.11-0.59); #Neutrophils 4.4 thou/uL (1.40-6.50); %Basophils 0.3 % (0.0-1.0); %Eosinophils 5.4 % (0.0-10.0); %Lymphocytes 15.6 % (21.0-51.0); %Monocytes 5.8 % (0.0-10.0); %Neutrophils 72.9 % (42.0-75.0); Hemoglobin 13.8 g/dL (14.0-18.0); Mean Corpuscular HGB CONC 33.6 g/dL (32.0-36.0); Mean Corpuscular Hemoglobin 27.9 pg (27.0-31.0); Mean Corpuscular Volume 83.1 fL (78.0-98.0); Mean Platelet Volume 7.4 fL (7.4-10.4); Platelet Count 110 thou/uL (130-400); RBC Distribution Width 14.3 % (11.5-14.5); Red Blood Cell (RBC) Count 4.93 mill/uL (4.70-6.10)
[2020-03-05 18:59] LABS: ALT (SGPT) 22 U/L (8-55); AST (SGOT) 26 U/L (5-34); Albumin 3.9 g/dL (3.4-4.8); Alkaline Phosphatase 91 U/L (40-110); Anion Gap 15 mmol/L (10-20); BUN (Urea Nitrogen) 23 mg/dL (8.4-25.7); Bilirubin, Total 0.4 mg/dL (0.2-1.2); Calc. Creatinine Clearance 67 mL/min (70-130); Calcium 9.2 mg/dL (7.8-10.44); Carbon Dioxide 20 mmol/L (23-31); Chloride 107 mmol/L (98-107); Estimated GFR-MDRD 47; Globulin 3.5 g/dL (2.4-3.5); Glucose 110 mg/dL (83-110); Potassium 5.2 mmol/L (3.5-5.1); Protein, Total 7.4 g/dL (5.8-8.1); Sodium 137 mmol/L (136-145)
[2020-03-05] MEDS ORDERED: Diazepam 5 MG TAB PO SCH (19:15)
[2020-03-05] MEDS ORDERED: HOLD HYPOGLYCEMIC MEDS AM OF CATH FS SCH (19:15)
[2020-03-05] MEDS: Sodium Chloride 0.9% 1,000 ML IV SCH (19:50)
[2020-03-05] MEDS: Trospium 20 MG TAB PO SCH (20:37)
[2020-03-05] MEDS: Atorvastatin Calcium 20 MG TAB PO SCH (20:37)
[2020-03-05] MEDS: traMADol HCl 50 MG TAB PO PRN (20:38)
[2020-03-05] MEDS: Carvedilol 25 MG TAB PO SCH (20:38)
[2020-03-05] MEDS ORDERED: DC ENOXAPARIN NIGHT BEFORE CATH FS SCH (22:00)
[2020-03-06] MEDS: Trospium 20 MG TAB PO SCH ×2 (05:03→20:09)
[2020-03-06] MEDS: Sodium Chloride 0.9% 1,000 ML IV SCH ×2 (05:03→15:32)
[2020-03-06] MEDS: Carvedilol 25 MG TAB PO SCH ×2 (05:03→20:09)
[2020-03-06] MEDS ORDERED: Verapamil 5 MG/2 ML VIAL ONE (06:34)
[2020-03-06] MEDS ORDERED: Heparin 10,000 UNITS/ 10 ML VIAL ONE (06:34)
[2020-03-06] MEDS ORDERED: Adenosine 6 MG/2 ML VIAL ONE (06:34)
[2020-03-06] MEDS ORDERED: Nitroglycerin 100MG/250ML BOT 250 ML ONE (06:35)
[2020-03-06] MEDS ORDERED: Midazolam HCl 2 mg/2 ml Vial ONE (07:13)
[2020-03-06] MEDS ORDERED: Fentanyl 100 MCG/2 ML VIAL ONE (07:13)
[2020-03-06] MEDS ORDERED: Ondansetron PF 4 MG/2 ML Vial ONE (07:26)
[2020-03-06 08:55] LABS: BUN (Urea Nitrogen) 23 mg/dL (8.4-25.7); Calc. Creatinine Clearance 61 mL/min (70-130); Calcium 8.5 mg/dL (7.8-10.44); Carbon Dioxide 23 mmol/L (23-31); Estimated GFR-MDRD 43; Glucose 115 mg/dL (83-110)
[2020-03-06 09:07] LABS: Anion Gap 14 mmol/L (10-20); Chloride 106 mmol/L (98-107); Potassium 4.6 mmol/L (3.5-5.1); Sodium 138 mmol/L (136-145)
--- NOTE | 2020-03-06 13:12 | DIS ---
DATE OF ADMISSION: 03/05/2020 DATE OF DISCHARGE: 03/06/2020 DISCHARGE DIAGNOSES: 1. Coronary artery disease. 2. Heart failure. PROCEDURE: Coronary angiography with PCI to the right coronary artery with a 4.0 x 20 mm Synergy stent post-dilated to 4.5 noncompliant balloon catheter. COMPLICATIONS: None. HISTORY OF PRESENT ILLNESS: Mr. Finch is a very pleasant 84-year-old gentleman who was admitted one day prior to the procedure for hydration. He underwent fluid hydration overnight. He did well. He underwent coronary angiography and had noted lesion within the right coronary artery. He underwent successful PCI as described above. The patient was hydrated. The patient's creatinine did decrease on discharge. DISCHARGE MEDICATIONS: Include, 1. Aspirin 81 q.a.m. 2. Carvedilol 25 b.i.d. 3. Lipitor 20 at bedtime. 4. Multivitamin. 5. Isosorbide 30 daily. 6. Tramadol as directed. 7. Plavix 75 q.a.m. CONDITION ON DISCHARGE: Stable. Job ID: [id number]
[2020-03-06] MEDS ORDERED: Iopamidol 370 76% 50 ML VIAL FS ONE (14:27)
[2020-03-06] MEDS ORDERED: Iopamidol 370 76% 100 ML VIAL ONE (14:27)
[2020-03-06] MEDS ORDERED: FLU VACC QS2020-21(65YR UP)/PF 240 MCG/0.7 ML SYRINGE IM ONE (15:15)
[2020-03-06 17:02] LABS: Anion Gap 14 mmol/L (10-20); BUN (Urea Nitrogen) 24 mg/dL (8.4-25.7); Calc. Creatinine Clearance 59 mL/min (70-130); Calcium 8.9 mg/dL (7.8-10.44); Carbon Dioxide 26 mmol/L (23-31); Chloride 105 mmol/L (98-107); Estimated GFR-MDRD 41; Glucose 120 mg/dL (83-110); Potassium 4.6 mmol/L (3.5-5.1); Sodium 140 mmol/L (136-145)
[2020-03-06] MEDS: Atorvastatin Calcium 20 MG TAB PO SCH (20:09)
[2020-03-06] MEDS: traMADol HCl 50 MG TAB PO PRN (20:11)
[2020-03-07] MEDS: Sodium Chloride 0.9% 1,000 ML IV SCH (00:58)
[2020-03-07 05:26] LABS: #Eosinphils 0.1 thou/uL (0.0-0.7); #Lymphocytes 0.8 thou/uL (1.20-3.40); #Monocytes 0.4 thou/uL (0.11-0.59); #Neutrophils 3.3 thou/uL (1.40-6.50); %Basophils 0.3 % (0.0-1.0); %Eosinophils 3.2 % (0.0-10.0); %Lymphocytes 16.8 % (21.0-51.0); %Monocytes 7.7 % (0.0-10.0); %Neutrophils 71.9 % (42.0-75.0); Hemoglobin 12.1 g/dL (14.0-18.0); Mean Corpuscular HGB CONC 33.4 g/dL (32.0-36.0); Mean Corpuscular Hemoglobin 27.8 pg (27.0-31.0); Mean Corpuscular Volume 83.3 fL (78.0-98.0); Platelet Count 97 thou/uL (130-400); RBC Distribution Width 14.2 % (11.5-14.5); Red Blood Cell (RBC) Count 4.36 mill/uL (4.70-6.10); White Blood Cell (WBC) Count 4.6 thou/uL (4.8-10.8)
[2020-03-07 05:32] LABS: ALT (SGPT) 21 U/L (8-55); AST (SGOT) 22 U/L (5-34); Albumin 3.6 g/dL (3.4-4.8); Alkaline Phosphatase 79 U/L (40-110); Anion Gap 14 mmol/L (10-20); BUN (Urea Nitrogen) 21 mg/dL (8.4-25.7); Bilirubin, Total 0.4 mg/dL (0.2-1.2); Calc. Creatinine Clearance 66 mL/min (70-130); Calcium 8.6 mg/dL (7.8-10.44); Carbon Dioxide 23 mmol/L (23-31); Chloride 109 mmol/L (98-107); Estimated GFR-MDRD 46; Globulin 2.9 g/dL (2.4-3.5); Glucose 108 mg/dL (83-110); Potassium 4.6 mmol/L (3.5-5.1); Protein, Total 6.5 g/dL (5.8-8.1); Sodium 141 mmol/L (136-145)
[2020-03-07 07:34] VITALS: BP 160/78; TEMP 98.5
[2020-03-07] MEDS ORDERED: Clopidogrel Bisulfate 75 MG TAB PO SCH (09:00)
[2020-03-07] MEDS ORDERED: Aspirin Chewable 81 MG TAB PO SCH (09:00)
[2020-03-07] MEDS: Trospium 20 MG TAB PO SCH (09:12)
[2020-03-07] MEDS: Carvedilol 25 MG TAB PO SCH (09:12)
== END 2020-03-07 11:05 | disposition home or self-care (01) ==
LOC: EDSTATUS 02-19 09:15 → 2NO 03-05 14:28
PROVIDERS: ADMIT Internal Medicine Cardiovascular Disease; ATTEND Internal Medicine Cardiovascular Disease
PROC: B2111ZZ Fluoroscopy of Multiple Coronary Arteries using Low Osmolar Contrast (ICD-10-PCS; principal; 2020-03-05)
PROC: 4A023N7 Measurement of Cardiac Sampling and Pressure, Left Heart, Percutaneous Approach (ICD-10-PCS; 2020-03-05)
DX: I25.10 Atherosclerotic heart disease of native coronary artery without angina pectoris (principal); I50.9 Heart failure, unspecified; Z79.899 Other long term (current) drug therapy; Z88.8 Allergy status to other drugs, medicaments and biological substances
CPT/HCPCS: 80048 ×2; 80053 ×2; 85025 ×2; 85347; 93458; 94760; 97139; C1874; C9600; G0378 ×3; 36415; 92928; 99152; J0153; J1644; J2250; J2405; J3010; Q9967

== ENCOUNTER 2020-03-03 06:39 | Outpatient (CLI) | payer MEDICARE ==
[2020-03-03 10:06] LABS: #Eosinphils 0.2 10x3/uL (0.0-0.5); #Monocytes 0.4 10x3/uL (0.0-1.1); #Neutrophils 3.6 10x3/uL (1.5-8.4); %Basophils 0.6 % (0.0-2.0); %Eosinophils 4.2 % (0.0-6.0); %Lymphocytes 18.7 % (18.0-47.0); %Monocytes 7.6 % (0.0-10.0); %Neutrophils 68.1 % (40.0-75.0); Hemoglobin 13.1 g/dL (14.0-18.0); Mean Corpuscular HGB CONC 32.3 G/DL (32.0-36.0); Mean Corpuscular Hemoglobin 27.6 PG (27.0-33.0); Mean Corpuscular Volume 85.4 fl (80.0-100.0); Mean Platelet Volume 9.3 fl (7.4-10.4); Platelet Count 97 10x3/uL (130-400); RBC Distribution Width 14.5 % (11.5-14.5); Red Blood Cell (RBC) Count 4.74 10x6/uL (4.40-5.80); White Blood Cell (WBC) Count 5.3 10x3/uL (4.5-11.0)
[2020-03-03 10:20] LABS: ALT (SGPT) 19 U/L (8-55); AST (SGOT) 21 U/L (5-34); Alkaline Phosphatase 85 U/L (40-110); Anion Gap 16 mmol/L (10-20); BUN (Urea Nitrogen) 28 mg/dL (8.4-25.7); Bilirubin, Total 0.4 mg/dL (0.2-1.2); Calc. Creatinine Clearance 0 mL/min (70-130); Calcium 8.5 mg/dL (7.8-10.44); Carbon Dioxide 23 mmol/L (23-31); Chloride 105 mmol/L (98-107); Estimated GFR-MDRD 41; Globulin 2.8 g/dL (2.4-3.5); Glucose 145 mg/dL (83-110); Potassium 4.6 mmol/L (3.5-5.1); Protein, Total 6.8 g/dL (5.8-8.1); Sodium 139 mmol/L (136-145)
[2020-03-03 22:24] LABS: SARS-CoV-2 MS2 Positive; SARS-CoV-2 N Gene Negative; SARS-CoV-2 S Gene Negative; SARS-CoV-2 by NAA Not Detected (NotDetected); SARS-CoV-2 orf1ab Negative
== END 2020-03-03 06:40 | disposition home or self-care (01) ==
LOC: LABBT 06:39
PROVIDERS: ATTEND Internal Medicine Cardiovascular Disease
DX: Z01.812 Encounter for preprocedural laboratory examination (principal); Z20.828 Contact with and (suspected) exposure to other viral communicable diseases
CPT/HCPCS: 80053; 85025; U0003; 87635

== ENCOUNTER 2022-08-03 13:38 | Outpatient (CLI) | payer MEDICARE, OTHER | END 2022-08-03 13:39 | disposition home or self-care (01) | LOC: BICRAD 13:38 | PROVIDERS: ATTEND Family Medicine | DX: R06.09 Other forms of dyspnea (principal) | CPT/HCPCS: 71046 ==

== ENCOUNTER 2022-08-16 11:12 | Inpatient (IN) | payer OTHER ==
[2022-08-16] MEDS ORDERED: Nitroglycerin 0.4 MG TAB 1 EACH ONE (11:56)
[2022-08-16] MEDS ORDERED: Aspirin 325 MG TAB ONE (11:56)
[2022-08-16] MEDS ORDERED: Aspirin Chewable 81 MG TAB ONE (11:56)
[2022-08-16] MEDS ORDERED: Morphine 4 MG/ML VIAL ONE ×2 (12:12→15:11)
[2022-08-16 12:53] LABS: #Eosinphils 0.1 thou/uL (0.0-0.7); #Lymphocytes 0.8 thou/uL (1.20-3.40); #Monocytes 0.3 thou/uL (0.11-0.59); #Neutrophils 6.7 thou/uL (1.40-6.50); %Basophils 0.1 % (0.0-1.0); %Eosinophils 0.9 % (0.0-10.0); %Monocytes 3.7 % (0.0-10.0); %Neutrophils 85.2 % (42.0-75.0); Hemoglobin 12.6 g/dL (14.0-18.0); Mean Corpuscular HGB CONC 33.6 g/dL (32.0-36.0); Mean Corpuscular Hemoglobin 27.7 pg (27.0-31.0); Mean Corpuscular Volume 82.4 fl (78.0-98.0); Mean Platelet Volume 8.8 fL (7.4-10.4); Platelet Count 102 10x3/uL (130-400); Red Blood Cell (RBC) Count 4.57 mill/uL (4.70-6.10); White Blood Cell (WBC) Count 7.9 10x3/uL (4.8-10.8)
[2022-08-16] MEDS ORDERED: Mag-Al 1200 mg/1200 mg/30 ML UDCUP ONE (13:18)
[2022-08-16 15:02] LABS: ALT (SGPT) 13 U/L (8-55); AST (SGOT) 19 U/L (5-34); Albumin 3.9 g/dL (3.4-4.8); Alkaline Phosphatase 74 U/L (40-110); Anion Gap 17 mmol/L (10-20); BUN (Urea Nitrogen) 31 mg/dL (8.4-25.7); Bilirubin, Total 0.3 mg/dL (0.2-1.2); Calc. Creatinine Clearance 0 mL/min (70-130); Calcium 9.7 mg/dL (7.8-10.44); Carbon Dioxide 19 mmol/L (23-31); Chloride 108 mmol/L (98-107); Estimated GFR 29; Globulin 3.4 g/dL (2.4-3.5); Glucose 130 mg/dL (83-110); Lipase 23 U/L (8-78); Magnesium 1.7 mg/dL (1.6-2.6); Protein, Total 7.3 g/dL (5.8-8.1); Sodium 138 mmol/L (136-145)
[2022-08-16] MEDS ORDERED: Dextrose 50% Abboject 50 ML SYRINGE ONE (15:48)
[2022-08-16] MEDS ORDERED: Calcium Chloride 1 GM/10 ML Abboject SYRINGE ONE (15:48)
[2022-08-16] MEDS ORDERED: Insulin Regular 300 UNITS/3 ML VIAL ONE (15:48)
[2022-08-16] MEDS ORDERED: Albuterol 2.5 MG/0.5 ML NEB ONE (15:48)
[2022-08-16] MEDS ORDERED: Nitroglycerin 2% Ointment 1 INCH/1 GM Packet ONE (16:43)
[2022-08-16 17:13] LABS: Troponin I 0.027 ng/mL (< 0.028)
[2022-08-16] MEDS ORDERED: niCARdipine 25 MG in Sodium Chloride 0.9% 250 ML 250 ML IVPB SCH (17:30)
[2022-08-16 17:56] LABS: Troponin I 0.034 ng/mL (< 0.028)
[2022-08-16] MEDS ORDERED: niCARdipine 25 MG/10 ML SDV ONE (18:54)
[2022-08-16 19:22] LABS: Magnesium 1.8 mg/dL (1.6-2.6)
[2022-08-16] MEDS ORDERED: Ipratropium/Albuterol 3 ML NEB NEB PRN (19:55)
[2022-08-16 20:03] LABS: Hemoglobin A1c 5.6 % (4.0-6.0)
[2022-08-16 20:09] LABS: Cardiac Risk 5.3 (Less than 4.5)
[2022-08-16] MEDS ORDERED: Ondansetron PF 4 MG/2 ML Vial IVP PRN (20:15)
[2022-08-16] MEDS ORDERED: Ondansetron ODT 4 MG TAB SL PRN (20:15)
[2022-08-16] MEDS ORDERED: Acetaminophen 325 MG TAB PO PRN (20:15)
[2022-08-16 20:19] LABS: Anion Gap 17 mmol/L (10-20); BUN (Urea Nitrogen) 29 mg/dL (8.4-25.7); Calc. Creatinine Clearance 0 mL/min (70-130); Calcium 10.3 mg/dL (7.8-10.44); Carbon Dioxide 24 mmol/L (23-31); Chloride 104 mmol/L (98-107); Estimated GFR 30; Glucose 110 mg/dL (83-110); Potassium 5.3 mmol/L (3.5-5.1); Sodium 140 mmol/L (136-145)
[2022-08-16] MEDS ORDERED: Labetalol HCl 100 MG/20 ML VIAL SLOW IVP PRN (20:26)
[2022-08-16] MEDS ORDERED: hydrALAZINE 20 MG/ML VIAL SLOW IVP PRN (20:26)
[2022-08-16 20:27] LABS: Troponin I 0.011 ng/mL (< 0.028)
[2022-08-16] MEDS ORDERED: Electrolyte Replacement Protocol 1 EACH FS SCH (20:30)
[2022-08-16] MEDS ORDERED: Magnesium 2 GM/50 ML(in water) 2 GM in Premix Bag 1 BAG IVPB SCH (20:45)
[2022-08-16] MEDS ORDERED: Atorvastatin Calcium 20 MG TAB PO SCH (21:00)
[2022-08-16] MEDS: Famotidine/PF 20 mg/2ml Vial SLOW IVP SCH (21:40)
[2022-08-16] MEDS: Carvedilol 6.25 MG TAB PO SCH (21:40)
[2022-08-16] MEDS: Atorvastatin Calcium 40 MG TAB PO SCH (21:40)
[2022-08-16 23:05] LABS: Troponin I 0.021 ng/mL (< 0.028)
[2022-08-17 05:06] VITALS: BMI 40.1
[2022-08-17 07:21] LABS: #Eosinphils 0.2 thou/uL (0.0-0.7); #Monocytes 0.9 thou/uL (0.11-0.59); #Neutrophils 7.8 thou/uL (1.40-6.50); %Basophils 0.2 % (0.0-1.0); %Eosinophils 1.8 % (0.0-10.0); %Lymphocytes 9.9 % (21.0-51.0); %Monocytes 8.9 % (0.0-10.0); %Neutrophils 79.3 % (42.0-75.0); Hemoglobin 12.6 g/dL (14.0-18.0); Mean Corpuscular HGB CONC 32.6 g/dL (32.0-36.0); Mean Corpuscular Hemoglobin 26.8 pg (27.0-31.0); Mean Corpuscular Volume 82.2 fl (78.0-98.0); Mean Platelet Volume 7.9 fL (7.4-10.4); Platelet Count 112 10x3/uL (130-400); RBC Distribution Width 15.1 % (11.5-14.5); White Blood Cell (WBC) Count 9.9 10x3/uL (4.8-10.8)
[2022-08-17 07:36] LABS: Anion Gap 15 mmol/L (10-20); BUN (Urea Nitrogen) 27 mg/dL (8.4-25.7); Calc. Creatinine Clearance 46 mL/min (70-130); Calcium 9.3 mg/dL (7.8-10.44); Carbon Dioxide 20 mmol/L (23-31); Chloride 106 mmol/L (98-107); Estimated GFR 32; Glucose 128 mg/dL (83-110); Magnesium 2.1 mg/dL (1.6-2.6); Phosphorus 4.3 mg/dL (2.3-4.7); Potassium 5.4 mmol/L (3.5-5.1); Sodium 136 mmol/L (136-145)
[2022-08-17] MEDS: Carvedilol 6.25 MG TAB PO SCH ×2 (08:06→20:16)
[2022-08-17] MEDS: Multivitamin W/ Minerals 1 TAB PO SCH (08:06)
[2022-08-17] MEDS ORDERED: Furosemide 20 MG/2 ML VIAL SLOW IVP SCH (09:15)
[2022-08-17] MEDS ORDERED: Amlodipine 5 MG TAB PO SCH (10:30)
[2022-08-17 17:36] LABS: Chloride 104 mmol/L (98-107); Potassium 4.9 mmol/L (3.5-5.1); Sodium 135 mmol/L (136-145)
[2022-08-17 17:37] LABS: Calcium 9.1 mg/dL (7.8-10.44); Glucose 119 mg/dL (83-110)
[2022-08-17 17:39] LABS: Anion Gap 14 mmol/L (10-20); Carbon Dioxide 22 mmol/L (23-31)
[2022-08-17 17:41] LABS: BUN (Urea Nitrogen) 33 mg/dL (8.4-25.7); Calc. Creatinine Clearance 41 mL/min (70-130); Estimated GFR 28
[2022-08-17] MEDS: Arformoterol 15 MCG/2 ML NEB NEB SCH (19:16)
[2022-08-17] MEDS: Atorvastatin Calcium 40 MG TAB PO SCH (20:13)
[2022-08-17] MEDS: Famotidine/PF 20 mg/2ml Vial SLOW IVP SCH (20:14)
[2022-08-17] MEDS ORDERED: Morphine 2 MG/ML VIAL SLOW IVP PRN (23:36)
[2022-08-17] MEDS ORDERED: Lidocaine 2% Viscous Solution 20 ML, Aluminum & Magnesium Hydroxide 30 ML, Donnatal Eli... SSW SCH (23:59)
[2022-08-18 01:01] LABS: CKMB 3.8 ng/mL (0-6.6)
[2022-08-18] MEDS: Nitroglycerin 0.4 MG TAB (25 Tab Bottle) SL PRN ×3 (04:29→04:43)
[2022-08-18] MEDS ORDERED: Ondansetron PF 4 MG/2 ML Vial IVP PRN (04:51)
[2022-08-18] MEDS ORDERED: Morphine 4 MG/ML VIAL SLOW IVP PRN (04:53)
[2022-08-18] MEDS ORDERED: Aspirin 325 MG TAB PO SCH (05:00)
[2022-08-18] MEDS ORDERED: Polyethylene Glycol 3350 17 GM Packet PO PRN (05:01)
[2022-08-18] MEDS ORDERED: Docusate Sodium 100 MG/10 ML UDCUP PO PRN (05:01)
[2022-08-18 05:54] LABS: #Eosinphils 0.2 thou/uL (0.0-0.7); #Lymphocytes 1.1 thou/uL (1.20-3.40); #Monocytes 0.7 thou/uL (0.11-0.59); #Neutrophils 8.4 thou/uL (1.40-6.50); %Basophils 0.1 % (0.0-1.0); %Eosinophils 1.9 % (0.0-10.0); %Lymphocytes 10.5 % (21.0-51.0); %Monocytes 6.9 % (0.0-10.0); %Neutrophils 80.6 % (42.0-75.0); Hemoglobin 12.8 g/dL (14.0-18.0); Mean Corpuscular HGB CONC 34.1 g/dL (32.0-36.0); Mean Corpuscular Volume 82.1 fl (78.0-98.0); Platelet Count 108 10x3/uL (130-400); RBC Distribution Width 14.9 % (11.5-14.5); Red Blood Cell (RBC) Count 4.58 mill/uL (4.70-6.10); White Blood Cell (WBC) Count 10.4 10x3/uL (4.8-10.8)
[2022-08-18 06:16] LABS: ALT (SGPT) 11 U/L (8-55); AST (SGOT) 18 U/L (5-34); Albumin 3.9 g/dL (3.4-4.8); Alkaline Phosphatase 71 U/L (40-110); Anion Gap 18 mmol/L (10-20); BUN (Urea Nitrogen) 37 mg/dL (8.4-25.7); Bilirubin, Total 0.5 mg/dL (0.2-1.2); Calc. Creatinine Clearance 38 mL/min (70-130); Calcium 8.8 mg/dL (7.8-10.44); Carbon Dioxide 22 mmol/L (23-31); Chloride 102 mmol/L (98-107); Estimated GFR 26; Globulin 3.3 g/dL (2.4-3.5); Glucose 115 mg/dL (83-110); Lipase 17 U/L (8-78); Protein, Total 7.2 g/dL (5.8-8.1); Sodium 137 mmol/L (136-145)
[2022-08-18 06:19] LABS: Troponin I 0.039 ng/mL (< 0.028)
[2022-08-18] MEDS: Arformoterol 15 MCG/2 ML NEB NEB SCH ×2 (06:54→18:46)
[2022-08-18] MEDS: Carvedilol 6.25 MG TAB PO SCH ×2 (08:47→20:28)
[2022-08-18] MEDS: Amlodipine 10 MG TAB PO SCH (08:48)
[2022-08-18] MEDS: Multivitamin W/ Minerals 1 TAB PO SCH (08:48)
[2022-08-18] MEDS ORDERED: Communication Order-Pharmacy FS SCH (09:45)
[2022-08-18] MEDS ORDERED: Nitroglycerin 50 MG/250 ML BOT 250 ML IVPB SCH (10:45)
[2022-08-18] MEDS: Sodium Chloride 0.9% 1,000 ML IV SCH ×2 (10:56→21:38)
[2022-08-18 11:34] LABS: Troponin I 0.038 ng/mL (< 0.028)
[2022-08-18] MEDS ORDERED: Heparin 25,000 units/D5W 500 ML IV SCH (12:15)
[2022-08-18] MEDS: Heparin 10,000 UNITS/ 10 ML VIAL SLOW IVP SCH ×2 (13:44→21:23)
[2022-08-18] MEDS: Atorvastatin Calcium 40 MG TAB PO SCH (20:28)
[2022-08-18] MEDS ORDERED: Acetaminophen 325 MG TAB PO PRN (20:42)
[2022-08-19 03:57] LABS: #Eosinphils 0.1 thou/uL (0.0-0.7); #Lymphocytes 0.8 thou/uL (1.20-3.40); #Monocytes 0.7 thou/uL (0.11-0.59); #Neutrophils 8.1 thou/uL (1.40-6.50); %Basophils 0.1 % (0.0-1.0); %Lymphocytes 8.1 % (21.0-51.0); %Monocytes 7.2 % (0.0-10.0); %Neutrophils 83.6 % (42.0-75.0); Hemoglobin 12.2 g/dL (14.0-18.0); Mean Corpuscular Hemoglobin 26.5 pg (27.0-31.0); Mean Corpuscular Volume 82.8 fl (78.0-98.0); Mean Platelet Volume 7.6 fL (7.4-10.4); Platelet Count 97 10x3/uL (130-400); RBC Distribution Width 14.8 % (11.5-14.5); Red Blood Cell (RBC) Count 4.62 mill/uL (4.70-6.10); White Blood Cell (WBC) Count 9.7 10x3/uL (4.8-10.8)
[2022-08-19 04:15] LABS: Anion Gap 16 mmol/L (10-20); BUN (Urea Nitrogen) 37 mg/dL (8.4-25.7); Calc. Creatinine Clearance 44 mL/min (70-130); Calcium 8.8 mg/dL (7.8-10.44); Carbon Dioxide 20 mmol/L (23-31); Chloride 105 mmol/L (98-107); Estimated GFR 30; Glucose 117 mg/dL (83-110); Sodium 136 mmol/L (136-145)
[2022-08-19] MEDS ORDERED: Heparin 10,000 UNITS/ 10 ML VIAL ONE (06:23)
[2022-08-19] MEDS ORDERED: Nitroglycerin 50 MG/250 ML BOT 250 ML ONE (06:23)
[2022-08-19] MEDS ORDERED: Midazolam HCl 2 mg/2 ml Vial ONE (06:23)
[2022-08-19] MEDS ORDERED: Lidocaine 1% (PF) 30 ML VIAL ONE (06:23)
[2022-08-19] MEDS ORDERED: Verapamil 5 MG/2 ML VIAL ONE (06:23)
[2022-08-19] MEDS ORDERED: fentaNYL 50 mcg/mL 1 mL Vial ONE (06:24)
[2022-08-19 06:53] LABS: Bilirubin Negative (Negative); Blood, Urine 1+ (Negative); Clarity Clear (Clear); Glucose, Urine (Dipstick) Normal (Negative); Ketone, Urine Negative (Negative); Leukocyte 500 Leu/uL (Negative); Nitrite Negative (Negative); Protein, Urine (Dipstick) 30 mg/dL (Neg-Trace); Specific Gravity, Urine 1.014 (1.002-1.036); Urobilinogen Normal mg/dL (Less than 2)
[2022-08-19] MEDS: Arformoterol 15 MCG/2 ML NEB NEB SCH ×2 (07:04→19:00)
[2022-08-19 07:20] LABS: Creatinine, Urine 67.77 mg/dL (63-166)
[2022-08-19] MEDS ORDERED: Pantoprazole 40 MG VIAL IVP SCH (09:00)
[2022-08-19] MEDS: Sodium Chloride 0.9% 1,000 ML IV SCH ×2 (09:33→16:45)
[2022-08-19] MEDS: Multivitamin W/ Minerals 1 TAB PO SCH (09:36)
[2022-08-19] MEDS: Carvedilol 6.25 MG TAB PO SCH ×2 (09:36→21:09)
[2022-08-19] MEDS: Amlodipine 10 MG TAB PO SCH (09:36)
[2022-08-19] MEDS: traMADol HCl 50 MG TAB PO PRN ×2 (11:46→21:10)
[2022-08-19] MEDS: hydrALAZINE 25 MG TAB PO SCH ×2 (14:22→22:06)
[2022-08-19] MEDS: Atorvastatin Calcium 40 MG TAB PO SCH (21:09)
[2022-08-20] MEDS: Sodium Chloride 0.9% 1,000 ML IV SCH ×2 (02:12→09:36)
[2022-08-20 04:05] LABS: #Eosinphils 0.2 thou/uL (0.0-0.7); #Lymphocytes 0.7 thou/uL (1.20-3.40); #Monocytes 0.5 thou/uL (0.11-0.59); #Neutrophils 6.5 thou/uL (1.40-6.50); %Basophils 0.3 % (0.0-1.0); %Eosinophils 1.9 % (0.0-10.0); %Lymphocytes 9.1 % (21.0-51.0); %Monocytes 6.4 % (0.0-10.0); %Neutrophils 82.3 % (42.0-75.0); Mean Corpuscular HGB CONC 33.1 g/dL (32.0-36.0); Mean Corpuscular Hemoglobin 27.9 pg (27.0-31.0); Mean Corpuscular Volume 84.3 fl (78.0-98.0); Mean Platelet Volume 8.9 fL (7.4-10.4); Platelet Count 92 10x3/uL (130-400); RBC Distribution Width 15.2 % (11.5-14.5); Red Blood Cell (RBC) Count 4.67 mill/uL (4.70-6.10); White Blood Cell (WBC) Count 7.9 10x3/uL (4.8-10.8)
[2022-08-20] MEDS: hydrALAZINE 25 MG TAB PO SCH ×2 (05:55→14:50)
[2022-08-20 07:02] LABS: Calcium 8.2 mg/dL (7.8-10.44); Chloride 110 mmol/L (98-107); Sodium 135 mmol/L (136-145)
[2022-08-20 07:03] LABS: Glucose 107 mg/dL (83-110)
[2022-08-20 07:04] LABS: Anion Gap 14 mmol/L (10-20); Carbon Dioxide 16 mmol/L (23-31)
[2022-08-20 07:06] LABS: Calc. Creatinine Clearance 47 mL/min (70-130); Estimated GFR 32
[2022-08-20 07:07] LABS: BUN (Urea Nitrogen) 34 mg/dL (8.4-25.7)
[2022-08-20] MEDS: Arformoterol 15 MCG/2 ML NEB NEB SCH (07:15)
[2022-08-20] MEDS: Carvedilol 6.25 MG TAB PO SCH (09:35)
[2022-08-20] MEDS: Amlodipine 10 MG TAB PO SCH (09:36)
[2022-08-20] MEDS: Multivitamin W/ Minerals 1 TAB PO SCH (09:36)
[2022-08-20] MEDS: traMADol HCl 50 MG TAB PO PRN (09:38)
[2022-08-20 12:47] VITALS: TEMP 98.4
[2022-08-20 14:50] VITALS: BP 144/69
== END 2022-08-20 15:15 | disposition home or self-care (01) | DRG 286 ==
LOC: ERS 11:12 → CCU 17:16
PROVIDERS: ADMIT Emergency Medicine; ATTEND Family Medicine
PROC: 4A023N8 Measurement of Cardiac Sampling and Pressure, Bilateral, Percutaneous Approach (ICD-10-PCS; principal; 2022-08-19)
PROC: B3101ZZ Fluoroscopy of Thoracic Aorta using Low Osmolar Contrast (ICD-10-PCS; 2022-08-19)
PROC: B2111ZZ Fluoroscopy of Multiple Coronary Arteries using Low Osmolar Contrast (ICD-10-PCS; 2022-08-19)
PROC: B2161ZZ Fluoroscopy of Right and Left Heart using Low Osmolar Contrast (ICD-10-PCS; 2022-08-19)
DX: I25.110 Atherosclerotic heart disease of native coronary artery with unstable angina pectoris (principal); I50.33 Acute on chronic diastolic (congestive) heart failure; J96.01 Acute respiratory failure with hypoxia; I13.0 Hypertensive heart and chronic kidney disease with heart failure and stage 1 through stage 4 chronic kidney disease, or unspecified chronic kidney disease; I16.1 Hypertensive emergency; N17.9 Acute kidney failure, unspecified; N18.32 Chronic kidney disease, stage 3b; J44.9 Chronic obstructive pulmonary disease, unspecified; E78.5 Hyperlipidemia, unspecified; I73.9 Peripheral vascular disease, unspecified; E55.9 Vitamin D deficiency, unspecified; D69.6 Thrombocytopenia, unspecified; Z96.652 Presence of left artificial knee joint; E87.5 Hyperkalemia; K21.9 Gastro-esophageal reflux disease without esophagitis; I08.3 Combined rheumatic disorders of mitral, aortic and tricuspid valves; I49.3 Ventricular premature depolarization; G89.29 Other chronic pain; N32.81 Overactive bladder; I44.0 Atrioventricular block, first degree; D63.1 Anemia in chronic kidney disease; R32 Unspecified urinary incontinence; R50.9 Fever, unspecified; Z88.8 Allergy status to other drugs, medicaments and biological substances; Z79.899 Other long term (current) drug therapy; Z79.82 Long term (current) use of aspirin; Z95.5 Presence of coronary angioplasty implant and graft; Z90.49 Acquired absence of other specified parts of digestive tract; Z86.010 Personal history of colon polyps; Z83.3 Family history of diabetes mellitus; Z87.891 Personal history of nicotine dependence; Z98.890 Other specified postprocedural states
CPT/HCPCS: 36415; 36416; 71045; 71275; 74174; 80048; 80053; 80061; 81003; 82553; 82570; 83036; 83690; 83735; 83880; 84100; 84443; 84484; 84540; 85025; 85347; 85730; 93005; 93010; 93306; 93460; 94640; 97139; 99152; 99153; C1751; C1769; C1894; J1644; J1650; J1815; J1940; J2001; J2250; J2270; J2272; J2405; J3010; J3475; J7050; J7611; J7999; S0028